=== PATIENT | female | born 1995 | race Caucasian/White ===

== ENCOUNTER 2018-06-03 03:35 | Emergency (ER) | payer SELFPAY ==
[2018-06-03 03:46] VITALS: TEMP 98.2
[2018-06-03] MEDS ORDERED: Sodium Chloride 0.9% 1,000 ML IV ONE (03:50)
--- NOTE | 2018-06-03 03:50 | C.PDOC ---
History Of Present Illness 22 year old female presents to the ED c/o sudden onset mid epigastric abdominal pain radiating to her back. Patient reports her pain is sharp, stabbing. Patient's LMP was 3 weeks ago. Patient denies fever, chills, nausea, vomit, diar lam, dysuria, hematuria, rash, back pain, weakness, numbness. Time Seen by Provider: 06/03/18 03:50 Chief Complaint (Nursing): Abdominal Pain History Per: Patient History/Exam Limitations: no limitations Onset/Duration Of Symptoms: Sudden Onset Current Symptoms Are (Timing): Still Present Location Of Pain/Discomfort: Epigastric Radiation Of Pain To:: Back Quality Of Discomfort: "Pain" Associated Symptoms: denies: Nausea, Vomiting, Diarrhea, Urinary Symptoms Recent travel outside of the [place]: No Additional History Per: Patient Abnormal Vaginal Bleeding: No Last Menstral Period: 3 weeks ago Past Medical History Reviewed: Historical Data, Nursing Documentation, Vital Signs Vital Signs: Last Vital Signs Temp 98.2 F 06/03/18 03:42 Pulse 90 06/03/18 03:42 Resp 16 06/03/18 03:42 BP 119/81 06/03/18 03:42 Pulse Ox 97 06/03/18 03:42 - Medical History PMH: No Chronic Diseases Surgical History: No Surg Hx Family History: States: Unknown Family Hx - Social History Hx Alcohol Use: Yes Hx Substance Use: No - Immunization History Hx Tetanus Toxoid Vaccination: No Hx Influenza Vaccination: No Hx Pneumococcal Vaccination: No Review Of Systems Constitutional: Negative for: Fever, Chills Cardiovascular: Negative for: Chest Pain Respiratory: Negative for: Cough, Shortness of Breath Gastrointestinal: Positive for: Abdominal Pain. Negative for: Nausea, Vomiting, Diarrhea Genitourinary: Negative for: Dysuria, Hematuria Musculoskeletal: Negative for: Back Pain Skin: Negative for: Rash Neurological: Negative for: Weakness, Numbness Physical Exam - Physical Exam Appears: Non-toxic, No Acute Distress Skin: Warm, Dry Head: Normacephalic Eye(s): bilateral: Normal Inspection Oral Mucosa: Moist Neck: Supple Chest: Symmetrical Cardiovascular: Rhythm Regular Respiratory: No Rales, No Rhonchi, No Wheezing Gastrointestinal/Abdominal: Soft, Tenderness (mid epigastric), No Guarding, No Rebound Back: No CVA Tenderness Extremity: Bilateral: Atraumatic, Normal Color And Temperature, Normal ROM Neurological/Psych: Oriented x3, Normal Speech, Normal Cognition Gait: Steady ED Course And Treatment - Laboratory Results Result Diagrams: 06/03/18 03:59 06/03/18 03:59 O2 Sat by Pulse Oximetry: 97 (ON RA) Pulse Ox Interpretation: Normal - CT Scan/US CT abd/pelvis Other Rad Studies (CT/US): Read By Radiologist, Radiology Report Reviewed CT/US Interpretation: CT SCAN OF THE ABDOMEN AND PELVIS WITH CONTRAST. CLINICAL HISTORY: Abdominal pain. TECHNIQUE: Multiple axial and coronal CT images were obtained through the abdomen and pelvis after administration of intravenous cont rast material. COMMENTS: The liver is of uniform attenuation without mass or defect. There is no intra or extrahepatic biliary ductal dilatation. The spleen is normal. The gallbladder is distended, diffusely thickened and enhancing. The pancreas is of normal contour and attenuation characteristics. There is no evidence of adrenal mass. Both kidneys demonstrate prompt and equal nephrograms. The kidneys are normal in size, shape and configuration. There is no evidence of renal or ureteral mass. No renal or ureteral calculi are identified. There is no hydroureter or hydronephrosis. No evidence for appendicitis. There is no bowel wall thickening. No evidence for small or large bowel obstruction. There is no evidence of abdominal ascites or lymphadenopathy. There is no evidence of intrinsic or extrinsic bladder mass. There is minimal amount of free pelvic fluid. 2.6 cm left ovarian cyst. Images of the lung bases show no evidence of pleural or parenchymal mass. There are no pleural ef fusions. The bony structures are free of lytic or blastic lesions. IMPRESSION: Suspected mild acute inflammatory changes of the gallbladder. Sonographic evaluation is suggested. Left ovarian uncomplicated cyst. Minimal amount of free pelvic fluid. Thank you for your kind referral of this patient. . Electronically signed on Jun 03, 2018 6:00:41 AM EST by: Kamran Alas M.D., Certified by NEEL, MSK, Neuroradiology Progress Note: Plan: - Labs. - IV fluids. - Zofran 4 mg IVP. - UA. 6:09 AM Pt is pain free and wants to go home. Aware of the possible acute bita and she will return if symptoms recur. Does not want to wait for an US Reevaluation Time: 06:09 Reassessment Condition: Improved Medical Decision Making Medical Decision Making: Upon provider reevaluation patient is feeling better, is medically stable, and requires no further treatment in the ED at this time. Patient will be discharged home . Counseling was provided and all questions were answered regarding diagnosis and need for follow up with the referred clinic. There is agreement to discharge plan. Return if symptoms persist or worsen. Disposition Counseled Patient/Family Regarding: Studies Performed, Diagnosis, Need For Followup - Disposition Referrals: [facility] [Outside] [facility] [Outside] Alvaro Lacy MD [Staff Provider] - Disposition: HOME/ ROUTINE Disposition Time: 03:50 Condition: FAIR Additional Instructions: Please return if symptoms recur Instructions: Acute Abdomen (Belly Pain), Adult (DC) Forms: [employer] (Hebrew) - Clinical Impression Clinical Impression: Abdominal pain, Cholecystitis - Scribe Statement The provider has reviewed the documentation as recorded by the Scribe Shade Leung All medical record entries made by the Scribe were at my direction and personally dictated by me. I have reviewed the chart and agree that the record accurately reflects my personal performance of the history, physical exam, medical decision making, and the department course for this patient. I have also personally directed, reviewed, and agree with the discharge instructions and disposition.
[2018-06-03 04:04] LABS: BASO % 0.6 % (0.0-2.0); EOS # 0.2 K/uL (0.0-0.7); EOS % 2.5 % (0.0-4.0); HEMOGLOBIN 13.4 g/dL (11.0-16.0); LYMPH # 3.2 K/uL (1.0-4.3); LYMPH % 38.9 % (20.0-40.0); MEAN CELL VOLUME 87.6 fL (81.0-99.0); MEAN CORPUSCULAR HEMOGLOBIN 28.3 pg (27.0-31.0); MEAN CORPUSCULAR HGB CONC 32.3 g/dL (33.0-37.0); MEAN PLATELET VOLUME 8.4 fL (7.2-11.7); MONO # 0.7 K/uL (0.0-0.8); MONO % 8.5 % (0.0-10.0); NEUT # 4.1 K/uL (1.8-7.0); NEUT % 49.5 % (50.0-75.0); RBC 4.76 Mil/uL (3.80-5.20); RED CELL DISTRIBUTION WIDTH 13.2 % (11.5-14.5); WHITE BLOOD COUNT 8.2 K/uL (4.8-10.8)
[2018-06-03 04:08] LABS: HCG,QUALITATIVE URINE NEGATIVE (NEGATIVE)
[2018-06-03] MEDS ORDERED: Sodium Chloride 0.9% 1,000 ML ONE (04:08)
[2018-06-03 04:11] LABS: SQUAMOUS EPITHIAL 1 /hpf (0-5); URINE BILIRUBIN NEGATIVE (NEGATIVE); URINE BLOOD 1+ (NEGATIVE); URINE CLARITY Clear (Clear); URINE COLOR Yellow (YELLOW); URINE GLUCOSE (UA) NORMAL (Normal); URINE LEUKOCYTE ESTERASE NEG Leu/uL (Negative); URINE PROTEIN NEGATIVE (NEGATIVE); URINE UROBILINOGEN NORMAL mg/dL (0.2-1.0)
[2018-06-03 04:17] LABS: ALB/GLOB RATIO 1.5 (1.0-2.1); ALBUMIN 4.9 g/dL (3.5-5.0); ALT/SGPT 35 U/L (9-52); AST/SGOT 31 U/L (14-36); BLOOD UREA NITROGEN 16 mg/dL (7-17); CALCIUM 9.1 mg/dl (8.6-10.4); GFR NON-AFRICAN AMERICAN > 60; LIPASE 73 U/L (23-300)
[2018-06-03] MEDS ORDERED: Iodixanol 320 MG/ML 100 ML BOTTLE IV ONE (04:56)
[2018-06-03 06:33] VITALS: BP 110/70; PULSE 70; RESP 14; O2SAT 99
--- NOTE | 2018-06-03 09:21 | CT ---
CT abdomen and pelvis HISTORY: Right upper quadrant abdominal pain. Mid epigastric abdominal pain. COMPARISON: None. TECHNIQUE: Multiple contiguous axial images were performed through the abdomen and pelvis with the use of intravenous contrast. Subsequently, sagittal and coronal reformatted images were obtained. This CT exam was performed using one or more of the following dose reduction techniques: Automated exposure control, adjustment of the mA and/or kV according to patient size, and/or use of iterative reconstruction technique. Findings: 6 millimeter nodular density at the right lung base as demonstrated on series 3, image 31. No pleural or pericardial effusion. Prominent liver. Gallbladder wall appears mildly thickened and edematous. Correlation with right upper quadrant abdominal ultrasound may be helpful if clinically indicated to exclude acute infectious and or inflammatory changes at this level. Clinical correlation. Spleen is preserved. Adrenal glands are preserved. Pancreas is preserved. Under distended stomach. Right kidney: No calculi or hydronephrosis. Left Kidney: No calculi or hydronephrosis. Urinary bladder is preserved. Heterogeneous uterus. Prominent endometrium. Peripherally enhancing left adnexal cyst measuring 2.4 centimeters. Free fluid at the level of the left adnexa and posterior pelvic cul-de-sac. Moderate fecal retention in the colon. Appendix not well identified on this study. Mild underdistention at the level the sigmoid colon. Few shotty para-aortic and inguinal nodes. Few shotty mesenteric nodes. Osseous structures grossly preserved. Mild scoliotic curvature of the spine. Impression: 1. Gallbladder wall appears mildly thickened and edematous. Correlation with right upper quadrant abdominal ultrasound may be helpful if clinically indicated to exclude acute infectious and or inflammatory changes at this level. Clinical correlation. 2. Heterogeneous uterus. Prominent endometrium. Peripherally enhancing left adnexal cyst measuring 2.4 centimeters. Free fluid at the level of the left adnexa and posterior pelvic cul-de-sac. 3. Moderate fecal retention in the colon. Mild underdistention at the level of the sigmoid colon. 4. Appendix not well identified on this study. Additional findings as above. A preliminary report was generated at 6 a.m. on 06/03/[address] Kamran Alas from [employer].
== END 2018-06-03 06:34 | disposition home or self-care (01) ==
LOC: C.ER 03:35
DX: K81.9 Cholecystitis, unspecified (principal); R10.13 Epigastric pain
CPT/HCPCS: 74177; 80053; 81001; 83690; 84703; 85025; 96374; 96375; 99284; J1885; J2405; J7030; Q9967

== ENCOUNTER 2018-06-24 05:05 | Emergency (ER) | payer OTHER ==
[2018-06-24] MEDS ORDERED: Sodium Chloride 0.9% 1,000 ML IV ONE (05:21)
[2018-06-24] MEDS ORDERED: Sucralfate 1 gm/10 ml Oral Susp UD PO STA (05:22)
--- NOTE | 2018-06-24 05:24 | C.PDOC ---
History Of Present Illness 22 y/o female presents to the ED complaining of epigastric pain, radiating to her back for 2 hours. She denies any associated nausea, vomiting, diarrhea, fever, or chills. Patient has PMHx of gall bladder problem last year. Time Seen by Provider: 06/24/18 05:15 Chief Complaint (Nursing): Abdominal Pain History Per: Patient History/Exam Limitations: no limitations Onset/Duration Of Symptoms: Hrs Current Symptoms Are (Timing): Still Present Severity: Moderate Location Of Pain/Discomfort: Epigastric Radiation Of Pain To:: Back Quality Of Discomfort: "Pain" Alleviating Factors: None Past Medical History Reviewed: Historical Data, Nursing Documentation, Vital Signs Vital Signs: Last Vital Signs Temp 97.7 F 06/24/18 05:11 Pulse 78 06/24/18 05:11 Resp 14 06/24/18 05:11 BP 118/82 06/24/18 05:11 Pulse Ox 98 06/24/18 05:11 Surgical History: No Surg Hx Family History: States: Unknown Family Hx - Social History Hx Tobacco Use: No Hx Alcohol Use: Yes Hx Substance Use: No - Immunization History Hx Tetanus Toxoid Vaccination: No Hx Influenza Vaccination: No Hx Pneumococcal Vaccination: No Review Of Systems Constitutional: Negative for: Fever, Chills Cardiovascular: Negative for: Palpitations Respiratory: Negative for: Shortness of Breath Gastrointestinal: Positive for: Abdominal Pain. Negative for: Nausea, Vomiting, Diarrhea Genitourinary: Negative for: Dysuria, Frequency Neurological: Negative for: Weakness, Dizziness Physical Exam - Physical Exam Appears: Non-toxic, No Acute Distress Skin: Warm, Dry Head: Atraumatic, Normacephalic Eye(s): bilateral: Normal Inspection, PERRL, EOMI Oral Mucosa: Moist Neck: Normal ROM Chest: Symmetrical Cardiovascular: Rhythm Regular, No Murmur Respiratory: Normal Breath Sounds, No Rales, No Rhonchi, No Wheezing Gastrointestinal/Abdominal: Soft, Tenderness (Epigastric tenderness; + On palpation of epigastric area, pain radiated to upper chest), No Guarding, No Rebound Back: No CVA Tenderness, No Vertebral Tenderness Extremity: Bilateral: Atraumatic, Normal Color And Temperature, Normal ROM Neurological/Psych: Oriented x3 ED Course And Treatment - Laboratory Results Result Diagrams: 06/24/18 05:49 06/24/18 05:49 O2 Sat by Pulse Oximetry: 98 (RA) Pulse Ox Interpretation: Normal - CT Scan/US Abdominal US Other Rad Studies (CT/US): Read By Radiologist, Radiology Report Reviewed CT/US Interpretation: Name:EFRA PIZANO Exam Date:Jun 24, 2018 6:02:40 AM EST. Modality Type:SD\\US\\KY\\SR. Description:US - AB LIMITED (SINGLE ORGAN, QUADRANT). Gender:F Laterality:Not applicable. :94 Referring Physician:KAYLA RAMÍREZ. Ultrasound abdomen, limited. Indication: Upper abdominal pain. Technique: Real-time ultrasound images were obtained. Findings: Normal pancreas. Hepatic steatosis. Normal gallbladder wall thickness measuring 1.2 mm. Nondilated common bile duct measuring 3.7 mm. There is normal in size measuring 13.8 cm. Right kidney measures 10.6 x2.8x5.3 cm. Unremarkable portal vein. Impression: Fatty liver infiltration. No evidence of cholelithiasis or acute cholecystitis. Progress Note: Blood work and urine sent to the lab. Abdominal US ordered. Patient given IVF hydration, 20 mg bentyl IM, 40 mg protonix IV, and 1 gm Carafate PO. Results discussed with patient in detail, all questions answered. Disposition Counseled Patient/Family Regarding: Diagnosis - Disposition Referrals: [facility] [Outside] Disposition: HOME/ ROUTINE Disposition Time: 06:53 Condition: STABLE Prescriptions: Pantoprazole Sodium [Protonix] 40 mg PO DAILY #20 ect Instructions: Acid Reflux (Gastroesophageal Reflux Disease), Adult (DC) Forms: [employer] (Nepalese) - POA Present On Arrival: None - Clinical Impression Clinical Impression: Gastroesophageal reflux disease - Scribe Statement The provider has reviewed the documentation as recorded by the Ethel Ordoñez Provider Attestation: All medical record entries made by the Tjibparas were at my direction and personally dictated by me. I have reviewed the chart and agree that the record accurately reflects my personal performance of the history, physical exam, medical decision making, and the department course for this patient. I have also personally directed, reviewed, and agree with the discharge instructions and disposition.
--- NOTE | 2018-06-24 05:24 | C.PDOC ---
Chief Complaint (Nursing): Abdominal Pain Past Medical History Vital Signs: Last Vital Signs Temp 97.7 F 06/24/18 05:11 Pulse 78 06/24/18 05:11 Resp 14 06/24/18 05:11 BP 118/82 06/24/18 05:11 Pulse Ox 98 06/24/18 05:11 Family History: States: Unknown Family Hx - Social History Hx Alcohol Use: Yes Hx Substance Use: No - Immunization History Hx Tetanus Toxoid Vaccination: No Hx Influenza Vaccination: No Hx Pneumococcal Vaccination: No ED Course And Treatment O2 Sat by Pulse Oximetry: 98 Disposition - Disposition
[2018-06-24] MEDS ORDERED: Sodium Chloride 0.9% 1,000 ML ONE (05:35)
[2018-06-24 05:51] LABS: BASO % 0.6 % (0.0-2.0); EOS # 0.2 K/uL (0.0-0.7); EOS % 2.7 % (0.0-4.0); HEMOGLOBIN 13.7 g/dL (11.0-16.0); LYMPH % 26.5 % (20.0-40.0); MEAN CELL VOLUME 88.2 fL (81.0-99.0); MEAN CORPUSCULAR HEMOGLOBIN 29.3 pg (27.0-31.0); MEAN CORPUSCULAR HGB CONC 33.2 g/dL (33.0-37.0); MEAN PLATELET VOLUME 8.3 fL (7.2-11.7); MONO # 0.7 K/uL (0.0-0.8); NEUT # 4.4 K/uL (1.8-7.0); NEUT % 60.2 % (50.0-75.0); RBC 4.68 Mil/uL (3.80-5.20); RED CELL DISTRIBUTION WIDTH 13.2 % (11.5-14.5); WHITE BLOOD COUNT 7.4 K/uL (4.8-10.8)
[2018-06-24 06:03] LABS: SQUAMOUS EPITHIAL < 1 /hpf (0-5); URINE BILIRUBIN NEGATIVE (NEGATIVE); URINE BLOOD 1+ (NEGATIVE); URINE CLARITY Clear (Clear); URINE COLOR Straw (YELLOW); URINE GLUCOSE (UA) NORMAL (Normal); URINE LEUKOCYTE ESTERASE NEG Leu/uL (Negative); URINE PROTEIN NEGATIVE (NEGATIVE); URINE UROBILINOGEN NORMAL mg/dL (0.2-1.0)
[2018-06-24 06:17] LABS: ALB/GLOB RATIO 1.5 (1.0-2.1); ALBUMIN 4.7 g/dL (3.5-5.0); ALT/SGPT 30 U/L (9-52); AST/SGOT 31 U/L (14-36); BLOOD UREA NITROGEN 10 mg/dL (7-17); CALCIUM 8.9 mg/dl (8.6-10.4); GFR NON-AFRICAN AMERICAN > 60
[2018-06-24 06:26] LABS: LIPASE 70 U/L (23-300)
[2018-06-24 06:48] VITALS: BP 118/73; PULSE 77; RESP 20; TEMP 97.1
[2018-06-24 06:52] VITALS: O2SAT 98
--- NOTE | 2018-06-24 09:26 | US ---
Date of service: 06/24/2018 HISTORY: upper abd pain COMPARISON: None. TECHNIQUE: Sonographic evaluation of the right upper quadrant of the abdomen. FINDINGS: LIVER: Measures 14.8 cm in length. Smooth contour however increased echotexture consistent with fatty infiltration however other infiltrative hepatocellular disease process not excluded. No mass. No intrahepatic bile duct dilatation. GALLBLADDER: Unremarkable. No gallstones. No wall edema, pericholecystic fluid collections or sonographic Grimes sign. COMMON BILE DUCT: Measures 3.7 mm. No stones. No dilatation. PANCREAS: Unremarkable as visualized. No mass. No ductal dilatation. RIGHT KIDNEY: Measures 10.7 x 3.8 x 5.3 cm in length. Normal echogenicity. No calculus, mass, or hydronephrosis. AORTA: No aneurysmal dilatation. IVC: Unremarkable. OTHER FINDINGS: None . IMPRESSION: Increased hepatic echotexture likely due to fatty infiltration however other infiltrative hepatocellular disease process not excluded. No evidence of cholelithiasis.
== END 2018-06-24 07:01 | disposition home or self-care (01) ==
LOC: C.ER 05:05
DX: K21.9 Gastro-esophageal reflux disease without esophagitis (principal)
CPT/HCPCS: 76705; 80053; 81001; 83690; 85025; 96372; 96374; 99285; C9113; J0500; J7030